=== PATIENT | female | born 1990 | race Caucasian/White ===

== ENCOUNTER 2019-08-17 11:01 | Inpatient (IN) ==
[2019-08-17 12:01] LABS: Basophils % 0.3 % (0.0-0.8); Eosinophils # 0.2 10*3/uL (0.0-0.87); Eosinophils % 1.3 % (0.00-10.9); Hematocrit 32.2 VOL% (35.7-47.0); Hemoglobin 10.5 GM/DL (12.0-16.0); Immature Granulocytes % 1.5 %; Immature Granulocytes Absolute 0.21 #; Lymphocytes % 21.2 % (21.3-54.2); Mean Corpuscular HGB Conc 32.6 GM/DL (32-36); Mean Corpuscular Volume 96.7 FL (87-102); Mean Platelet Volume 10.1 FL (9.6-12.0); Monocytes % 7.1 % (1.7-12.7); Neutrophils % 68.6 % (38.7-73.9); Platelet Count 344 T/CUMM (130-400); Red Blood Count 3.33 MC/CUMM (3.8-5.5); Red Cell Distribution Width 14.9 % (9.3-17.3)
[2019-08-17 12:12] LABS: PT Patient Result 10.3 SECS (9.8-11.9); Partial Thromboplastin Time 25.8 SECS (23.9-33.8)
[2019-08-17 12:17] LABS: Apearance,Urine CLEAR (Clear); Bilirubin,Urine Negative (Negative); Blood, Urine Negative (Negative); Glucose,Urine (UA) Negative (Negative); Ketones,Urine Negative (Negative); Mucus,Urine Many /LPF (Occasional); Nitrite,Urine Negative (Negative); Protein,Urine Negative; Squamous Epithelial Cell,Urine Occasional /HPF (0-10); Urine Color Yellow (Yellow); Urine Specific Gravity 1.023 (1.001-1.035); Urine Urobilinogen < 2.0 EU/DL (0.2-1.0)
[2019-08-17] MEDS ORDERED: BETAMETH SODIUM PHOS/ACETATE 30 MG/5 ML VIAL IM SCH (12:30)
[2019-08-17] MEDS: LACTATED RINGERS 1,000 ML IV SCH (12:45)
[2019-08-17] MEDS ORDERED: ceFAZolin 2,000 MG in PREMIX 1 EACH IV ONE (20:26)
[2019-08-17] MEDS ORDERED: FAMOTIDINE 20 MG/2 ML VIAL IV ONE (20:26)
[2019-08-17] MEDS ORDERED: CITRIC ACID/SODIUM CITRATE 30 ML UDCUP PO ONE (20:26)
[2019-08-17] MEDS ORDERED: OXYTOCIN/LR 20 UNIT/1,000 ML BAG IV ONE (20:29)
[2019-08-17] MEDS ORDERED: MORPHINE 10 MG/10 ML VIAL ONE (20:45)
[2019-08-17] MEDS ORDERED: ONDANSETRON 4 MG/2 ML VIAL ONE (20:45)
[2019-08-17] MEDS ORDERED: PHENYLEPHRINE 1 MG/10 ML SYRINGE IV ONE ×2 (20:45→22:45)
[2019-08-17] MEDS ORDERED: BUPIVACAINE SPINAL 0.75% 2 ML AMP SPINAL ONE (20:46)
[2019-08-17] MEDS ORDERED: METHYLERGONOVINE 0.2 MG/1 ML AMP ONE (20:48)
[2019-08-17] MEDS ORDERED: CARBOPROST TROMETHAMINE 250 MCG/ML AMP IM ONE (20:48)
[2019-08-17] MEDS ORDERED: miSOPROStoL 200 MCG TABLET ONE (20:48)
[2019-08-17] MEDS ORDERED: TRANEXAMIC ACID 1,000 MG/10 ML VIAL ONE (20:48)
[2019-08-17] MEDS ORDERED: ROPIVACAINE 0.5% 30 ML VIAL ONE (20:54)
[2019-08-17] MEDS ORDERED: DEXAMETHASONE 4 MG/1 ML VIAL ONE (20:54)
[2019-08-17 22:08] LABS: Cord Arterial Blood HCO3 21.4 MMOL/L
[2019-08-17 22:09] LABS: Cord Venous Blood HCO3 21.9 MMOL/L; Cord Venous Blood PO2 28.4
[2019-08-17] MEDS ORDERED: MIDAZOLAM 2 MG/2 ML VIAL ONE (22:46)
[2019-08-17] MEDS ORDERED: fentaNYL 100 MCG/2 ML VIAL ONE (22:46)
[2019-08-17] MEDS ORDERED: propofoL 200 MG/20 ML VIAL IV ONE (22:46)
[2019-08-18] MEDS: ACETAMINOPHEN 500 MG TABLET PO SCH ×4 (00:30→17:36)
[2019-08-18] MEDS ORDERED: diphenhydrAMINE 50 MG/1 ML VIAL IV ONE (02:40)
[2019-08-18] MEDS ORDERED: diphenhydrAMINE 50 MG/1 ML VIAL ONE (02:42)
[2019-08-18] MEDS: KETOROLAC 30 MG/1 ML VIAL IV SCH ×4 (02:43→17:36)
[2019-08-18] MEDS ORDERED: OXYTOCIN/D5LR 20 UNIT/1,000 ML PREMIX IV ONE (03:56)
[2019-08-18] MEDS ORDERED: OXYTOCIN/LR 20 UNIT/1,000 ML BAG IV ONE (04:00)
[2019-08-18 04:07] LABS: Basophils # 0.1 10*3/uL (0.0-0.2); Basophils % 0.2 % (0.0-0.8); Hematocrit 27.7 VOL% (35.7-47.0); Hemoglobin 9.2 GM/DL (12.0-16.0); Immature Granulocytes % 1.8 %; Immature Granulocytes Absolute 0.46 #; Lymphocytes # 2.6 10*3/uL (1.4-4.0); Lymphocytes % 10.6 % (21.3-54.2); Mean Corpuscular HGB Conc 33.2 GM/DL (32-36); Mean Corpuscular Volume 96.2 FL (87-102); Mean Platelet Volume 10.2 FL (9.6-12.0); Monocytes % 6.3 % (1.7-12.7); Neutrophils % 81.1 % (38.7-73.9); Platelet Count 318 T/CUMM (130-400); Red Blood Count 2.88 MC/CUMM (3.8-5.5); Red Cell Distribution Width 14.6 % (9.3-17.3); White Blood Count 24.9 T/CUMM (4-12)
[2019-08-18 04:36] LABS: Hypochromasia Slight; Microcytosis Slight; Platelet Estimate Adequate
[2019-08-18 04:40] LABS: Apearance,Urine CLEAR (Clear); Bacteria,Urine Occasional /HPF (Few); Bilirubin,Urine Negative (Negative); Blood, Urine Negative (Negative); Glucose,Urine (UA) Negative (Negative); Ketones,Urine 20 mg/dL (Negative); Mucus,Urine Occasional /LPF (Occasional); Nitrite,Urine Negative (Negative); Protein,Urine Negative; RBC,Urine 2 /HPF (0-4); Squamous Epithelial Cell,Urine Occasional /HPF (0-10); Urine Color Yellow (Yellow); Urine Specific Gravity 1.018 (1.001-1.035); Urine Urobilinogen < 2.0 EU/DL (0.2-1.0); WBC,Urine <1 /HPF (0-6)
[2019-08-18] MEDS: LACTATED RINGERS 1,000 ML IV SCH ×5 (11:43→13:48)
[2019-08-19 04:20] LABS: Basophils % 0.2 % (0.0-0.8); Eosinophils # 0.1 10*3/uL (0.0-0.87); Eosinophils % 0.4 % (0.00-10.9); Lymphocytes # 3.3 10*3/uL (1.4-4.0); Lymphocytes % 18.6 % (21.3-54.2); Monocytes % 9.2 % (1.7-12.7); Neutrophils % 70.4 % (38.7-73.9); White Blood Count 17.7 T/CUMM (4-12)
[2019-08-19] MEDS ORDERED: MAGNESIUM HYDROXIDE SUSP 30 ML UDCUP PO PRN (09:00)
[2019-08-19] MEDS ORDERED: BISACODYL 10 MG SUPP RECTAL PRN (16:33)
[2019-08-19] MEDS: DOCUSATE SODIUM 100 MG CAPSULE PO SCH (21:51)
[2019-08-20] MEDS: IBUPROFEN 800 MG TABLET PO PRN ×2 (02:51→18:47)
[2019-08-20] MEDS: DOCUSATE SODIUM 100 MG CAPSULE PO SCH ×2 (10:05→21:00)
[2019-08-20] MEDS ORDERED: SIMETHICONE CHEW 80 MG TABLET PO PRN (19:00)
[2019-08-21 07:16] VITALS: BP 96/55
[2019-08-21] MEDS: DOCUSATE SODIUM 100 MG CAPSULE PO SCH (07:53)
[2019-08-21] MEDS: IBUPROFEN 800 MG TABLET PO PRN (11:25)
== END 2019-08-21 13:05 | disposition home or self-care (01) | DRG 540 ==
LOC: N.LDOUT 11:01 → N.LD 11:03 → N.OB 08-18 15:56
PROVIDERS: ADMIT Obstetrics & Gynecology; ATTEND Obstetrics & Gynecology
PROC: LDCSECT (ICD-10-PCS; 2019-08-17 21:30)